=== PATIENT | female | born 1955 | race Caucasian/White ===

== ENCOUNTER 2018-12-07 05:33 | Outpatient (CLI) | payer OTHER ==
[~2018-12-07] VITALS: Ht 169 cm; Wt 95.3 kg
[2018-12-07] MEDS ORDERED: LEVO112T55 PO (10:58)
[2018-12-07] MEDS ORDERED: LOVA10TA PO (10:58)
[2018-12-07] MEDS ORDERED: MELO15TA39 PO (10:58)
[2018-12-07] MEDS ORDERED: HYDR-3812 PO (10:58)
== END 2018-12-07 11:02 | disposition home or self-care (01) ==
LOC: PREOP 05:33
PROVIDERS: ATTEND Podiatrist Foot & Ankle Surgery
DX: Z01.818 Encounter for other preprocedural examination (principal)

== ENCOUNTER 2018-12-16 11:21 | Day surgery (SDC) | payer OTHER ==
[2018-12-16] VITALS (12 sets, daily range): BP systolic 131–157; BP diastolic 65–87
[~2018-12-16] VITALS: Ht 169 cm; Wt 95.3 kg
[~2018-12-16 11:21] MED LIST: HYDR-3812 PO; LEVO112T55 PO; LOVA10TA PO; MELO15TA39 PO
[2018-12-16] MEDS: LACTATED RINGERS 1,000 ML IV PRN ×2 (11:59→15:09)
[2018-12-16] MEDS ORDERED: ceFAZolin INJECTION 1,000 MG in WATER (STERILE) FOR INJECTION 10 ML IV ONE (12:00)
[2018-12-16] MEDS ORDERED: ceFAZolin INJECTION 1,000 MG ONE (12:00)
[2018-12-16] MEDS ORDERED: CATHETER FLUSH 10 ML SYR IV PRN (12:15)
[2018-12-16] MEDS ORDERED: proPOfol 200 MG/20 ML (DIPRIVAN) VIAL IV ONE (12:19)
[2018-12-16] MEDS ORDERED: LIDOCAINE PF 2% 5 ML (XYLOCAINE) VIAL ONE (12:19)
[2018-12-16] MEDS ORDERED: SEVOFLURANE (ULTANE) 15 ML INHAL SOLN ONE ×2 (12:19→14:42)
[2018-12-16] MEDS ORDERED: fentaNYL INJECTION 100 MCG/2 ML AMP ONE ×2 (12:20→14:08)
[2018-12-16] MEDS ORDERED: MIDAZOLAM 2 MG/2 ML (VERSED) VIAL ONE (12:20)
[2018-12-16] MEDS ORDERED: BUPIVACAINE 0.5% 30 ML (SENSORCAINE) VIAL ONE (12:37)
[2018-12-16] MEDS ORDERED: DEXAMETHASONE 10 MG/ML (DECADRON) 1 ML VIAL ONE ×2 (12:37→14:41)
--- NOTE | 2018-12-16 13:04 | Progress Note-Pre Operative ---
Pre-Operative Progress Note H&P Reviewed The H&P was reviewed, patient examined and no changes noted. Date Seen by Provider: Dec 16, 2018 Time Seen by Provider: 13:02 Date H&P Reviewed: Dec 16, 2018 Time H&P Reviewed: 13:02 Pre-Operative Diagnosis: Hallux Valgus, 2nd Hammertoe, 2nd Hypertrophic Metatarsal, all right foot HILL WINKLER DPM Dec 16, 2018 13:04
[2018-12-16] MEDS ORDERED: ONDANSETRON 4 MG/2 ML (SDV) Z0FRAN ONE ×2 (14:41→15:14)
[2018-12-16] MEDS ORDERED: LACTATED RINGERS 1,000 ML IV SCH (14:49)
--- NOTE | 2018-12-16 14:49 | Progress Note-Post Operative ---
Post-Operative Progess Note Surgeon (s)/Crm Technical Lead (s) Surgeon HILL WINKLER DPM Crm Technical Lead: none Pre-Operative Diagnosis Hallux Valgus, 2nd Hammertoe, 2nd Hypertrophic Metatarsal, all right foot Post-Operative Diagnosis Hallux Valgus, Hypertrophic 2nd Metatarsal, right foot Procedure & Operative Findings Date of Procedure 12/16/18 Procedure Performed/Findings Andrade-Lexx Type Bunionectomy, 2nd metatarsal osteotomy, right Anesthesia Type General Estimated Blood Loss Estimated blood loss (mL): Minimal Specimens/Packing Specimens Removed None HILL WINKLER DPM Dec 16, 2018 14:49
[2018-12-16] MEDS ORDERED: ACHD5005 PO (14:53)
[2018-12-16] MEDS ORDERED: CEPH500C PO (14:53)
[2018-12-16] MEDS ORDERED: morphine INJ 10 MG/ML 1ML (SYR OR VIAL) IVP ONE (15:00)
[2018-12-16] MEDS ORDERED: fentaNYL INJECTION 100 MCG/2 ML AMP IVP ONE (15:00)
[2018-12-16] MEDS ORDERED: ONDANSETRON 4 MG/2 ML (SDV) Z0FRAN IVP PRN ×2 (15:00)
[2018-12-16] MEDS ORDERED: HYDROcodone/APAP 5 MG/325 MG (LORTAB) TAB PO PRN (15:00)
[2018-12-16] MEDS ORDERED: morphine INJ 10 MG/ML 1ML (SYR OR VIAL) ONE (15:06)
--- NOTE | 2018-12-16 15:35 | Physical Therapy Progress Note ---
Therapy Progress Note Patient is currently in recovery. PT discussed with family equipment needs. Per family report, house is handicap accessible, ramps and rails/grab bars. Knee scooter and w/c for mobility established prior. Family feels all needs are met and declined FWW training or use. RN notified. ANAND CALLAHAN PT Dec 16, 2018 15:35
--- NOTE | 2018-12-16 17:34 | Diagnostic Imaging Report ---
INDICATION: Bunionectomy. EXAMINATION: Two views of the right foot were obtained. FINDINGS: There are postsurgical changes of 1st ray bunionectomy. Hardware appears intact. No suspicious retained opaque foreign body. There is postsurgical screw in the distal head of the 2nd metatarsal. IMPRESSION: 1st toe proximal phalanx osteotomy and 1st metatarsal osteotomy with intact hardware in good alignment. No suspicious retained foreign body. Dictated by: Dictated on workstation # [id number]
--- NOTE | 2018-12-16 19:14 | OPERATIVE REPORT ---
DATE OF SERVICE: 12/16/2018 SURGEON: Carol Marroquin DPM. PREOPERATIVE DIAGNOSES: 1. Hallux abductovalgus metatarsal primus varus, right. 2. Hypertrophic right second metatarsal. 3. Hammer digit syndrome with medial deviation. POSTOPERATIVE DIAGNOSES: 1. Hallux abductovalgus metatarsal primus varus, right. 2. Hypertrophic right second metatarsal. 3. Hammer digit syndrome with medial deviation. PROCEDURES PERFORMED: 1. Modified Andrade-Lexx bunionectomy, right. 2. Second metatarsal osteotomy, right. WOUND CLASS: Clean. ANESTHESIA: General. HEMOSTASIS: Pneumatic thigh tourniquet at 250 mmHg. INDICATIONS: This 63-year-old female presents with complaint of a painful right bunion and pain to the ball of the foot of the right lower extremity. Conservative therapy has met with unsatisfactory results and the patient is agreeable to surgical intervention after risks and complications were discussed at length. No guarantees were extended to the patient and she is willing to proceed. DESCRIPTION OF PROCEDURE: The patient was brought back to the operating table, placed in secure supine position. Appropriate timeout was performed. Pneumatic thigh tourniquet was placed on the right lower extremity over several layers of padding. The right foot was then prepped and draped in the normal sterile manner. The right foot was then elevated and allowed to exsanguinate after which the tourniquet was inflated to 250 mmHg. The right foot was also anesthetized utilizing 10 mL of 0.5% Marcaine plain in a local infusion to the first and second ray, right foot. Attention was then directed to the dorsal aspect of the right first metatarsal where a 6 cm longitudinal linear incision was created. The incision was deepened in the same plane with great care to identify and retract all vital neurovascular structures when necessary blood vessels were cauterized as encountered. The incision was deepened down to the extensor tendon and a dorsal medial capsule where a longitudinal capsulotomy was created. This exposed the hypertrophic dorsal and medial eminence to the first metatarsal head, which was resected utilizing a power sagittal saw. Next, blunt dissection was carried out into the first intermetatarsal space. Next, utilizing a power sagittal saw, a Chevron-type osteotomy was performed. Great care was taken to translocate the capital fragment from medial to lateral. The capital fragment was fixated in its corrected position utilizing a 0.062 threaded K-wire driven from dorsal proximal and distal across the osteotomy with great care not to penetrate the articular cartilage. Excellent bony apposition and fixation was appreciated at this time. The K-wire was cut flush with the dorsal aspect of the first metatarsal. The head of the first metatarsal was further contoured and smooth utilizing a power bur and a power sagittal saw. The wound was flushed with copious amounts of normal saline. Attention was then directed to the proximal phalanx of the right hallux where subperiosteal dissection was carried out. A wedge of bone was resected utilizing power sagittal saw with the lateral cortices were held intact and the base of the wedge was medial. Once the wedge was removed, the capital fragment was translocated medially closing the gap which realigned the right hallux in a more rectus alignment with the first metatarsal. The wound was flushed with copious amounts of normal saline. A pilot boat captain hole was created to the dorsal medial aspect of the osteotomy after which a 28-gauge was passed through the pilot boat captain hole securing the osteotomy in a closed position. Excellent bony apposition and fixation was appreciated at this time. The wound was flushed with copious amounts of normal saline and closure was then performed in layers. Deep closure was performed with 3-0 Vicryl, superficial with 4-0 Vicryl, skin closure with 4-0 Prolene in a horizontal mattress type stitch. Attention was then directed to the dorsal aspect of the right second metatarsophalangeal joint where a 3 cm longitudinal linear incision was created. The incision was deepened in the same plane with blunt dissection down to the capsular tissue. The extensor tendon was identified and the incision was made from proximal to distal across the surgical neck of the metatarsal and metatarsophalangeal joint area. Once this was done, a power sagittal saw was utilized to create a second metatarsal osteotomy from dorsal to plantar in an orientation of the distal lateral to proximal medial allowing the capital fragment to translocate proximally and medially. Once the capital fragment was translocated medially and proximally, it was then fixated in its corrected position utilizing a snap-off screw of 2.0 diameter and 14 mm of length. Excellent bony apposition and fixation was appreciated at this time. The wound was flushed with copious amounts of normal saline. Excellent range of motion was appreciated at the right second metatarsophalangeal joint and this maneuver also seemed to correct the alignment of the right second toe as well. The wound was flushed once again after which closure was performed in layers. Deep closure was performed with 3-0 Vicryl, superficial with 4-0 Vicryl, skin closure with 4-0 Prolene in a horizontal mattress type stitch. Postoperative injection consisted of 13 mL of 0.5% Marcaine injected in a Kumar block as well as a local infusion to the second metatarsal head area. Dexamethasone 10 mg was also injected into the first intermetatarsal area. Postoperative dressing consisted of Betadine-soaked Adaptic, sterile 4 x 4, sterile Kerlix all secured with Coban wrap. The patient tolerated the operation as well as the tourniquet well. Cap refill time is within normal limits. She was transported from the operating room to the recovery area with vital signs stable and vascular status intact to all digits of the right foot. She is to follow up in my office in 10 days' period of time or sooner if necessary. A prescription for Keflex and Vicodin were dispensed. She is to be nonweightbearing on the right lower extremity. Job ID: [id number] DocumentID: [id number] Dictated Date: 12/16/2018 15:02:12 Home Mortgage Disclosure Act Specialist Date: 12/16/2018 19:12:13 Dictated By: CLARE COLE
== END 2018-12-16 17:05 | disposition home or self-care (01) ==
LOC: SDC 11:21
PROVIDERS: ATTEND Podiatrist Foot & Ankle Surgery
DX: M20.5X1 Other deformities of toe(s) (acquired), right foot (principal); M89.371 Hypertrophy of bone, right ankle and foot; M20.41 Other hammer toe(s) (acquired), right foot; E78.5 Hyperlipidemia, unspecified; G47.33 Obstructive sleep apnea (adult) (pediatric); E03.9 Hypothyroidism, unspecified; Z99.89 Dependence on other enabling machines and devices; Z87.891 Personal history of nicotine dependence; Z79.891 Long term (current) use of opiate analgesic; Z79.899 Other long term (current) drug therapy
CPT/HCPCS: 73620; 87081

== ENCOUNTER 2019-03-26 07:33 | Emergency (ER) | payer OTHER ==
[~2019-03-26] VITALS: Ht 170 cm; Wt 97.0 kg
[~2019-03-26 07:33] MED LIST changes: +ACHD5005 PO; +CEPH500C PO
--- NOTE | 2019-03-26 08:43 | Diagnostic Imaging Report ---
PROCEDURE: CT head and CT cervical spine without contrast. TECHNIQUE: Multiple contiguous axial images were obtained through the brain and cervical spine without the use of intravenous contrast. Sagittal and coronal reformations through the cervical spine were then performed. Auto Exposure Controls were utilized during the CT exam to meet ALARA standards for radiation dose reduction. INDICATION: Fall. Head injury. COMPARISON: None. FINDINGS: CT HEAD: Scalp contusion overlying the left parietal convexity. No fractures. No intracranial hemorrhage, mass effect, hydrocephalus or extra-axial fluid collections. The visualized paranasal sinuses and mastoids are clear. CT CERVICAL SPINE: Normal alignment. Vertebral body heights are preserved. No fractures. Moderate degenerative endplate changes greatest at C4-C7. Paranasal sinuses how no evidence of high-grade spinal canal narrowing on this noncontrast exam. The visualized paravertebral soft tissues are unremarkable. The lung apices are clear. IMPRESSION: 1. Scalp contusion overlying the left parietal convexity. No underlying fractures. 2. No acute intracranial CT findings. 3. Moderate spondylotic changes in the cervical spine. No acute findings. Dictated by: Dictated on workstation # [id number]
[2019-03-26] MEDS ORDERED: CYCL10TA9 PO (08:55)
--- NOTE | 2019-03-26 08:56 | ED Head Injury ---
General Chief Complaint: Head/Cervical Problems Stated Complaint: FALL - BACK OF HEAD INJ Nursing Triage Note: PT CO OF FALLING IN PARKING LOT AND HIT BACK OF HEAD. 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 PT IS NOT ON ASPIRIN OR ANY BLOOD THINNERS. PCP: DR. WELLS Allergies and Home Medications Allergies Coded Allergies: No Known Drug Allergies (Unverified , 12/07/18) Home Medications Cyclobenzaprine HCl 10 Mg Tablet, 10 MG PO Q8H Prescribed by: JESSE FELIX on 03/26/19 0855 Levothyroxine Sodium 112 Mcg Tablet, 112 MCG PO DAILY, (Reported) Lovastatin 10 Mg Tablet, 10 MG PO DAILY, (Reported) Meloxicam 15 Mg Tablet, 15 MG PO DAILY, (Reported) Patient Home Medication List Home Medication List Reviewed: Yes Review of Systems Review of Systems Constitutional: no symptoms reported Eyes: No Symptoms Reported Ears, Nose, Mouth, Throat: no symptoms reported Respiratory: no symptoms reported Cardiovascular: no symptoms reported Gastrointestinal: no symptoms reported Genitourinary: no symptoms reported Musculoskeletal: see HPI Skin: no symptoms reported Psychiatric/Neurological: No Symptoms Reported; Denies Cognitive Dysfunction, Denies Headache, Denies Numbness, Denies Tingling, Denies Weakness Endocrine: No Symptoms Reported Hematologic/Lymphatic: No Symptoms Reported Past Zlgrogt-Htwich-Wyempn Hx Patient Social History Alcohol Use: Denies Use Recreational Drug Use: No Smoking Status: Never a Smoker Former Smoker, Quit: Dec 07, 1984 2nd Hand Smoke Exposure: No Recent Foreign Travel: No Contact w/Someone Who Travel: No Recent Infectious Disease Expo: No Recent Hopitalizations: No Physical Abuse: No Sexual Abuse: No Seasonal Allergies Seasonal Allergies: Yes Past Medical History Surgeries: Yes (R HIP REPLACED, BACK SX, SX ON LITTLE TOE) Joint Replacement, Orthopedic, Tubal Ligation Respiratory: Yes Sleep Apnea Currently Using CPAP: No Currently Using BIPAP: No Cardiac: Yes High Cholesterol Neurological: No CHIEF ENTERPRISE ARCHITECT History: Menopausal Genitourinary: No Gastrointestinal: Yes (CELIAC DISEASE) Musculoskeletal: Yes (CHRONIC GENERALIZED PAIN) Arthritis, Chronic Back Pain Endocrine: Yes Hypothyroidsim HEENT: No Cancer: No Psychosocial: No Integumentary: No Blood Disorders: No Physical Exam Vital Signs Vital Signs - First Documented 03/26/19 07:50 Temp 36.9 Pulse 78 Resp 18 B/P (MAP) 173/75 (107) Pulse Ox 98 Capillary Refill : Less Than 3 Seconds Height, Weight, BMI Height: '" Weight: lbs. oz. kg; 33.00 BMI Method: General Appearance: WD/WN, no apparent distress HEENT: PERRL/EOMI, normal ENT inspection, TMs normal, pharynx normal, other (HAS SMALL HEMATOMA TO LEFT POSTERIOR SCALP, NO BLEEDING. NO BONY TENDERNESS OR DEFORMITY) Neck: non-tender, full range of motion, supple, normal inspection Cardiovascular: normal peripheral pulses, regular rate, rhythm, no edema, no JVD, no murmur Respiratory: chest non-tender, normal breath sounds, no respiratory distress, no accessory muscle use Gastrointestinal: normal bowel sounds, non tender, soft Back: normal inspection, no CVA tenderness, no vertebral tenderness Extremities: normal range of motion, non-tender, normal inspection, no pedal edema, no calf tenderness, normal capillary refill Psychiatric: alert, oriented x 3 Crainal Nerves: normal hearing, normal speech, PERRL Coordination/Gait: normal gait Motor/Sensory: no motor deficit, no sensory deficit, no pronator drift Skin: normal color [place] Coma Score Best Eye Response: (4) Open Spontaneously Best Verbal Response: (5) Oriented Best Motor Response: (6) Obeys Commands Zacarias Total: 15 Progress/Results/Core Measures Results/Orders My Orders Orders - JESSE FELIX DO Ct Head/Cervical Spine Wo (03/26/19 08:03) Vital Signs/I&O 03/26/19 03/26/19 07:50 09:02 Temp 36.9 Pulse 78 78 Resp 18 18 B/P (MAP) 173/75 (107) 142/70 (107) Pulse Ox 98 98 Blood Pressure Mean: [address] HEAD/CERVICAL SPINE--NO ACUTE PROCESS, DEGENERATIVE CHANGES OF CERVICAL SPINE--PER RADIOLOGIST REPORT AT 0849 Reviewed: Reviewed by Me Departure Impression Primary Impression: Minor head injury without loss of consciousness Additional Impression: CERVICAL SPINE STRAIN Disposition: HOME, SELF-CARE Condition: Stable Departure-Patient Inst. Referrals: DALTON WELLS MD (PCP/Family) Primary Care Physician Patient Instructions: Cervical Muscle Strain (DC), Minor Head Injury (DC) Add. Discharge Instructions: ICE TO SORE AREA AT 20 MINUTE INTERVALS TAKE YOUR HOME MEDICATION NEEDED FOLLOW UP WITH YOUR DR IN 3-4 DAYS IF NO BETTER, RETURN TO ER IF WORSE All discharge instructions reviewed with patient and/or family. Voiced understanding. Scripts Cyclobenzaprine HCl (Cyclobenzaprine HCl) 10 Mg Tablet 10 MG PO Q8H, #15 TAB Prov: JESSE FELIX DO 03/26/19 JESSE FELIX DO Mar 26, 2019 08:55
[2019-03-26 09:02] VITALS: BP 142/70
== END 2019-03-26 09:01 | disposition home or self-care (01) ==
LOC: EDUNIT# 07:33 → ER 07:35
DX: S09.90XA Unspecified injury of head, initial encounter (principal); S16.1XXA Strain of muscle, fascia and tendon at neck level, initial encounter; E78.00 Pure hypercholesterolemia, unspecified; E03.9 Hypothyroidism, unspecified; R40.2142 Coma scale, eyes open, spontaneous, at arrival to emergency department; R40.2252 Coma scale, best verbal response, oriented, at arrival to emergency department; R40.2362 Coma scale, best motor response, obeys commands, at arrival to emergency department; Z87.891 Personal history of nicotine dependence; Z98.51 Tubal ligation status; Z96.641 Presence of right artificial hip joint; W00.0XXA Fall on same level due to ice and snow, initial encounter; Y92.481 Parking lot as the place of occurrence of the external cause
CPT/HCPCS: 70450; 72125

== ENCOUNTER → 2022-03-27 | Outpatient (CLI) | payer MEDICARE ==
[~2022-03-27] MED LIST changes: +CYCL10TA25 PO; -HYDR-3812 PO
--- NOTE | 2022-03-27 11:58 | Diagnostic Imaging Report ---
INDICATION: Pain EXAMINATION: Left wrist 03/27/2022 3 views of the wrist FINDINGS: There is no evidence for an acute fracture or dislocation. The joint spaces are well maintained. There is no significant soft tissue swelling. IMPRESSION: No acute process. Dictated by: Dictated on workstation # [id number]
== END ==
LOC: RAD FS 11:04
PROVIDERS: ATTEND Nurse Practitioner
DX: M25.532 Pain in left wrist (principal)
CPT/HCPCS: 73110

== ENCOUNTER → 2022-04-10 | Outpatient (CLI) | payer MEDICARE ==
--- NOTE | 2022-04-10 10:11 | Diagnostic Imaging Report ---
CLINICAL HISTORY: Follow-up left elbow fracture. COMPARISON: None available. TECHNIQUE: 3 views of the left elbow. FINDINGS: Subacute to chronic fracture seen involving the proximal left radius. No malalignment. No new fractures are seen. Small left elbow joint effusion is seen. IMPRESSION: 1. Subacute to chronic fracture involving the proximal left radius without evidence of malalignment. 2. No new fractures are seen. 3. Small left elbow joint effusion. Dictated by: Dictated on workstation # [id number]
== END ==
LOC: RAD FS 09:00
PROVIDERS: ATTEND Nurse Practitioner
DX: S52.135D Nondisplaced fracture of neck of left radius, subsequent encounter for closed fracture with routine healing (principal); X58.XXXD Exposure to other specified factors, subsequent encounter
CPT/HCPCS: 73080